=== PATIENT | male | born 1960 | race Caucasian/White ===

== ENCOUNTER 2024-05-28 13:39 | Outpatient (CLI) | payer OTHER, SELFPAY | END 2024-05-28 13:40 | disposition home or self-care (01) | LOC: ANHAUDIO 13:42 | PROVIDERS: Visit Provider Otolaryngology | DX: H81.11 Benign paroxysmal vertigo, right ear (principal); H93.13 Tinnitus, bilateral; E11.9 Type 2 diabetes mellitus without complications; I10 Essential (primary) hypertension; I48.91 Unspecified atrial fibrillation | CPT/HCPCS: 92557; 92567 ==

== ENCOUNTER 2024-09-30 16:55 | Emergency (ER) | payer SELFPAY ==
--- NOTE | 2024-09-30 16:57 | ECG_ITS ---
Test Date: 2024-09-30 17:05:43 Measurements Intervals [place] Rate: 93 P: 257 MI: 129 QRS: -19 QRSD: 105 T: 53 QT: 359 QTc: 447 Interpretive Statements SINUS RHYTHM WITH ATRIAL TRIPLETS AND ATRIAL COUPLET DELAYED PRECORDIAL R/S TRANSITION BASELINE ARTIFACT- I, III, AVR, AVL ABNORMAL ECG No previous ECG available for comparison Electronically Signed On 09-30-2024 20:24:33 CDT by Cortes Gallegos D.O.
--- OUTSIDE RECORDS SUMMARY | 2024-09-30 16:57 | XMS_ITS | CONTINUITY OF CARE DOCUMENT ---
Author Name mimi le Address Unknown Organization [facility] Address [address] [place] [address] Phone [phone] Care Team Providers Care Strategic Planning Specialist Name Role Phone Art Johnson MD Unavailable [phone] ROX PELAEZ MD Unavailable Rox Pelaez MD Unavailable PROBLEMS Condition Status Date Provider Notes Atrial fibrillation, paroxysmal active Annika Summers Tuberculosis active Oscar Summers Dizziness active Oscar Summers Palpitations active Oscar Summers Hypertension active Oscar Summers Hx of tobacco abuse-quit active Oscar Burrell brad Aortic aneurysm active 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 F PRODUCT DIRECTOR Snoring active Art Johnson MD Hypersomnia active Art Johnson MD ENCOUNTERS Date Type Provider Location Encounter Diag nosis 05/18 - 05/31 In-person encounter Office Visit Art Johnson MD [facility] SnoringHypersomnia 01/18 - 01/20 In-person encounter Office Visit Kirk Green MD [facility] Aortic aneurysm 11/23 - 11/23 In-person encounter Office Visit Kirk Green MD [facility] 09/28 - 09/29 In-person encounter Office Visit Kirk Green MD [facility] Atrial fibrillation, paroxysmalTuberculosisDizzinessPalpitationsHypertens ionHx of tobacco abuse-quit VITAL SIGNS Date Observation Value Provider Body Mass Index (Ratio) 27.86 kg/m2 Stephen Johnson MD blood pressure, diastolic 87 mm[Hg] Von newton [facility] blood pressure, systolic 159 mm[Hg] Irene colon [facility] oxygen saturation, oximetry 99 % Regi [facility] pulse rate 63 /min Regi [facility] weight E&M 235 [lb_av] Regi [facility] height E&M 77 [in_i] [facility] Body Mass Index (Ratio) 26.44 kg/m2 Fabrizio Hernandez blood pressure, diastolic 76 mm[Hg] [facility] blood pressure, systolic 129 mm[Hg] [facility] oxygen saturation, oximetry 99 % [facility] pulse rate 65 /min [facility] weight E&M 223 [lb_av] [facility] height E&M 77 [in_i] [facility] Body Mass Index (Ratio) 26.80 kg/m2 Kirk Green MD blood pressure, cuff size regular Ke rri Mannie blood pressure, diastolic 80 mm[Hg] Ke rri Mannie blood pressure, systolic 140 mm[Hg] Asad Chand oxygen saturation, oximetry 99 % Karo Chand respiratory rate E&M 12 /min Karo hernandez pulse rate 74 /min Karo [facility] weight E&M 226 [lb_av] Karo [facility] height E&M 77 [in_i] Karo [place] [facility] weight E&M 229 [lb_av] Amy ruiz Body Mass Index (Ratio) 27.15 kg/m2 Annika Summers blood pressure, cuff size regular Kelley Larsen blood pressure, diastolic 70 mm[Hg] Kelley guevara Larsen blood pressure, systolic 129 mm[Hg] Toby Larsen oxygen saturation, oximetry 100 % [facility] respiratory rate E&M 14 /min Yovana Saurav iller pulse rate 66 /min [facility] weight E&M 229 [lb_av] [facility] height E&M 77 [in_i] [facility] ALLERGIES No Known Drug Allergies HISTORY OF MEDICATION USE Medication Status Instructions Dates Provider Indications Com ments losartan 50 mg tablet active TAKE 1 TABLET BY MOUTH EVERY DAY Mary Tabares losartan 50 mg tablet completed 1 tablet once a day - Mary Tabares folic acid 1 mg tablet active [facility] Xarelto 20 mg tablet active TAKE 1 TABLET BY MOUTH EVERY DAY WITH FOOD FOR 30 DAYS [facility] metoprolol succinate 100 mg tablet extended release 24 hr active TAKE 1 TABLET BY MOUTH EVERY DAY AT NIGHT [facility] losartan 25 mg tablet completed - Kirk Green MD metformin 850 mg tablet active TAKE 1 TABLET BY MOUTH 2 TIMES DAILY WITH MORNING AND EVENING MEAL Yovana Larsen SOCIAL HISTORY Date Observation Value Provider personal history of marijuana use no 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 [facility] drug use no Sarah Ventimig sindhu [facility] alcohol use yes Sarah Ventimig sindhu [facility] cigarette use yes Sarah Ventimi glia [facility] smoking status Former smoker Sarahion Horton miglia [facility] cigarette use yes Kirk Green MD smoking status Former smoker Kirk Green MD cigarette use yes Yovana Larsen smoking status Former smoker Yovana Larsen INSURANCE PROVIDERS Payer name Policy type / Coverage type [place] [employer] ID [employer] (2) Medicaid [id number] ADVANCE DIRECTIVES Name Date DISCUSSED - NO DECISION MADE TREATMENT PLAN Date Name Performer Cardiology Art Johnson MD Cardiology: c ontrolled 129/76 H is updated medication list for this problem includes: Metoprolol Succinate 100 Mg Tablet Extended Release 24 Hr (Metoprolol succinate) ..... Take 1 tablet by mouth every day at night Art Johnson MD Cardiology:Repeat CT in June Art Johnson MD Cardiology:Needs rep eat sleep study, last one was inconclusive Art Johnson MD Cardiology: r ate remains regular c ontinues on BB O n xarelto for AC H is updated medication list for this problem includes: Metoprolol Succinate 100 Mg Tablet Extended Release 24 Hr (Metoprolol succinate) ..... Take 1 tablet by mouth every day at night Art Johnson MD Cardiology:controlle d 129/76 H is updated medication list for this problem includes: Metoprolol Succinate 100 Mg Tablet Extended Release 24 Hr (Metoprolol succinate) ..... Take 1 tablet by mouth every day at night [facility] Cardiology:etiology remains unclear n o orthostatic changes on exam H e had tele with no signifcant arrhythmia W ill f/u with ENT for possible vertigo [facility] Cardiology:rate mayte ins regular c ontinues on BB O n xarelto for AC H is updated medication list for this problem includes: Metoprolol Succinate 100 Mg Tablet Extended Release 24 Hr (Metoprolol succinate) ..... Take 1 tablet by mouth every day at night [facility] Cardiology:Patient n oted to have 4.5 cm unchanged ascending aortic aneurysm on CT chest in 06/2023 and 12/2023 H is BP is well controlled L DL <70 W ill continue to follow with CT chest will repeat in June H is updated medication list for this problem includes: Metoprolol Succinate 100 Mg Tablet Extended Release 24 Hr (Metoprolol succinate) ..... Take 1 tablet by mouth every day at night Sarah Patton [facility] Cardiology:Possibly related to vertigo. Will start taking vertigo pills he was prescribed in the hospital. Kirk Green MD Cardiology:His [facility] ed medication list for this problem includes: Metoprolol Succinate 100 Mg Tablet Extended Release 24 Hr (Metoprolol succinate) ..... Take 1 tablet by mouth every day at night Kirk Green MD Cardiology: B P today: 140/80 P rior BP: 129/70 (09/29/2023) The following medications were removed from the medication list: Losartan 25 Mg Tablet (Losartan) His updated medication list for this problem includes: Metoprolol Succinate 100 Mg Tablet Extended Release 24 Hr (Metoprolol succinate) ..... Take 1 tablet by mouth every day at night Kirk Green MD Cardiology:Was recen tly hospitalized for coughing up blood. Will refer to Pulmonology Kirk Green MD Cardiology: H is updated medication list for this problem includes: Metoprolol Succinate 100 Mg Tablet Extended Release 24 Hr (Metoprolol succinate) ..... Take 1 tablet by mouth every day at night Oscar Summers Cardiology: B P today: 129/70 His updated medication list for this problem includes: Metoprolol Succinate 100 Mg Tablet Extended Release 24 Hr (Metoprolol succinate) ..... Take 1 tablet by mouth every day at night Losartan 25 Mg Tablet (Losartan) Oscar Summers Cardiology:Pt had a few episodes of Afib, usually self-terminated. Seen in ER a few times. States it all began after he was diagnosed with TB. Oscar Summers Cardiology:Complains of fatigue and dizziness. Will obtain echo, stress test, 1 week telecentry, PFTS, home sleep test, and lab work S TOP Losartan Oscar Summers Cardiology:Pt had a few episodes of Afib, usually self-terminated. Seen in ER a few times. States it all began after he was diagnosed with TB. He is currently on Xarelto, BB, and losartan. Complains of fatigue and dizziness. Will obtain echo, stress test, 1 week telecentry, PFTS, home sleep test, and lab work Oscar Summers Date Name Monitor - Telemetry (Mobile Cardiac) Sleep Study Home CT Chest without con trast CRP, high sensitivit y Lipoprotein (a) LIPID PANEL PROBNP, N TERMINAL Microalb/Creatinine Urine, Random HEMOGLOBIN A1c BASIC METABOLIC PANE L W/EGFR Sleep Study Home DLCO - 00986 FRC - 92527 FVC - 83060 Monitor - Telemetry (Mobile Cardiac) Stress Routine Complete Echo HISTORY OF PROCEDURES Procedure Date Procedure Name Provider Procedure Notes S tatus FVC / MVV with [facility] hodilator - 88070 Kirk Green MD completed FRC - 37597 Kirk Green MD completed SpO2 w/o 6min walk/titration Kirk Green MD completed DLCO - 33803 Kirk Green MD complete d
--- OUTSIDE RECORDS SUMMARY | 2024-09-30 16:57 | XMS_ITS ---
Author Organization [facility] Address [address] [place] [address] Care Team Providers Care Vice President Network Name Role Phone [facility] Primary Care Provider REASON FOR VISIT Cold chills and coughing up blood Social History Sex Assigned At : Social History Observation Description Sex Assigned At Male Encounters Encounter Location Date Provider Diagnosis [address] [address] 11/24/2023 [facility] Hemoptysis, unspecified R04.2 Assessments Encounter Date Diagnosis (ICD Code) Assessment Notes Treatment Notes Treatment Clinical Notes Section Notes 11/24/2023 Hemoptysis, unspecified (ICD-10 - R04.2) Plan Of Treatment No Information Progress Notes * GUTIERRES, AngeloDOB:1960 (63 yo M)Acc No.[id number]:11/24/2023 Patient: Angelo PARK :1960 A ge:63 Y S ex:Male Address:[address] [place] [address], [phone] Subjective: * Chief Complaints: * C old chills and coughing up blood * Medical History: * Surgical History: * Hospitalization/Major Diagno stic Procedure: * Medications: Objective: * Vitals: * Physical Examination: Assessment: * Assessment: 1. H emoptysis, unspecified - R04.2 (Primary) Plan: * Treatment: * Procedure Codes: * true * Date: Generated for Printi ng/Faxing/eTransmitting on: 0 09/30/2024 04:57 PM CDT
--- OUTSIDE RECORDS SUMMARY | 2024-09-30 16:57 | XMS_ITS ---
Author Organization [facility] Address [address] [place] [address] Care Team Providers Care Junior Software Engineer Name Role Phone [facility] Primary Care Provider REASON FOR VISIT Metformin clarification Medications Medication SIG (Take, Route, Fr equency, Duration) Notes Start Date End Date Status metFORMIN HCl 850 MG 1 tablet with a leann l Orally Twice a day Active Social History Sex Assigned At : Social History Observation Description Sex Assigned At Male Encounters Encounter Location Date Provider Diagnosis [address] [address] 10/16/2023 [facility] Type 2 diabetes mellitus with diabetic polyneuropathy E11.42 Assessments Encounter Date Diagnosis (ICD Code) Assessment Notes Treatment Notes Treatment Clinical Notes Section Notes 10/16/2023 Type 2 diabetes mellitus with diabetic polyneuropathy (ICD-10 - E11.42) Plan Of Treatment Medication Medication Name Sig Start Date Stop Date Notes metFORMIN HCl 850 MG 1 tablet with a leann l Orally Twice a day Progress Notes * Angelo GUTIERRESDOB:1960 (63 yo M)Acc No.[id number]:10/16/2023 Patient: Nikolai LAYNE Angelo :1960 A ge:63 Y S ex:Male Address:[address] [place] [address], [phone] * Refills Refill metFORMIN HCl Tablet, 850 MG, Orally, 60, 1 tablet with a meal, Twice a day, Refills=5 * true * Date: Generated for Printi ng/Faxing/eTransmitting on: 0 09/30/2024 04:57 PM CDT
--- OUTSIDE RECORDS SUMMARY | 2024-09-30 16:57 | XMS_ITS | Clinical Summary ---
Author Organization [facility] Address [address] [place] [address] Care Team Providers Care Store Consultant Name Role Phone Unavailable Primary Care Provider Unavailabl e Source Comments [facility],non-owned Affiliates and Associated Physician Practices is amultiple site organization consisting of ambulatory clinics and hospital sitesin [place], [place], [place] and [place]. This disclosure is being madepursuant to the Care Everywhere program and may not contain all informatio navailable regarding this patient. Last updated [email or web address] Allergies No known active allergies Medications * Be aware that medications may not be up to date on this document. Alwaysverify current medications with the patient. 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 Check also as needed 100 Each 07/02/2023 Active blood glucose test stripIndications:Type 2 diabetes mellitus with other specified complication, unspecified whether dedicated intermodal truck driver insulin use (HCC) Use 1 (one) strip as directed To check blood sugars 2 times daily fasting in am and after meal. Check also as needed 100 strip 07/02/2023 Active Xarelto 20 MG tablet Take 1 (one) tablet by mouth once daily for 30 days 30 tablet 08/20/2023 Active metoprolol tartrate IR (Lopressor) 25 MG tablet Take 1 (one) tablet by mouth 2 times daily for 30 days 60 tablet 08/20/2023 Active metFORMIN (Glucophage) 850 MG tablet Take 1 (one) tablet by mouth 2 times daily with morning and evening meal for 30 days 60 tablet 08/20/2023 Active pantoprazole EC (Protonix) 40 MG tablet Take 1 (one) tablet by mouth once daily for 30 days 30 tablet 08/20/2023 Active losartan (Cozaar) 25 MG tablet Take 1 (one) tablet by mouth once daily for 30 days 30 tablet 08/20/2023 Active Active Problems Problem Noted Date Diagnosed Date Tachycardia 07/02/2023 Cavitary lesion of lung 06/30/2023 Hemoptysis 06/30/2023 Immunizations Name Administration Dates Next Due COVID - 19, HISTORIC VACCINE 05/08/2024 INFLUENZA VACCINE, CELL CULT URE, TRIV. (FLUCELVAX TRIVALENT; 6MO+), 0.5 ML (CCIIV3) 05/08/2024 Social History Tobacco Use Types Packs/Day Years Used Date Smoking Tobacco: Never Assessed AUDIT-C Answer Date Recorded Q1: How often do you have a drink containing alc ohol? 2-3 times a week 06/30/2023 Q2: How many drinks containi ng alcohol do you have on a typical day when you are drinking? 5 or 6 06/30/2023 Q3: How often do you have si x or more drinks on one occasion? Weekly 06/30/2023 Overall Financial Resource Strain (CARDIA) Answe r Date Recorded How hard is it for you to pa y for the very basics like food, housing, medical care, and heating? Not hard at all 06/30/2023 [facility] of Occupat ional Health - Occupational Stress Questionnaire Answer Date Recorded Do you feel stress - tense, restless, nervous, or anxious, or unable to sleep at night because your mind is troubled all the time - these days? Not at all 06/30/2023 Hunger Vital Sign Answer Date Recorded Within the past 12 months, y ou worried that your food would run out before you got the money to buy more. Never true 06/30/19 24 Within the past 12 months, t he food you bought just didn't last and you didn't have money to get more. Never true 06/30/2023 PRAPARE - Transportation Answer Date Re corded In the past 12 months, has l ack of transportation kept you from medical appointments or from getting medications? No 01/2024 In the past 12 months, has l ack of transportation kept you from meetings, work, or from getting things needed for daily living? No 06/30/2023 Housing Stability Vital Sign Answer Julian e Recorded In the last 12 months, was t here a time when you were not able to pay the mortgage or rent on time? No 06/30/2023 In the last 12 months, how many places have you lived? 1 06/30/2023 In the last 12 months, was t here a time when you did not have a steady place to sleep or slept in a jail (including now)? No 06/30/2023 Sex and Gender Information Value Date Recorded Sex Assigned at Not on file Gender Identity Not on file Sexual Orientation Not on file Last Filed Vital Signs Vital Sign Reading Time Taken Comments Blood Pressure 127/71 07/09/2023 4:12 AM BIOLOGY SPECIALIST Pulse 79 07/09/2023 6:11 AM BIOLOGY SPECIALIST Temperature 36.6 C (97.8 F) 07/09/2023 6:11 AM BIOLOGY SPECIALIST Respiratory Rate 19 07/09/2023 6:11 AM BIOLOGY SPECIALIST Oxygen Saturation 96% 07/08/2023 2:21 PM BIOLOGY SPECIALIST Inhaled Oxygen Concentration - - Weight 113.4 kg (250 lb) 07/03/2023 11:02 AM BIOLOGY SPECIALIST Height 193 cm (6' 4 ) 07/03/2023 11:02 AM BIOLOGY SPECIALIST Body Mass Index 30.43 07/03/2023 11:02 AM BIOLOGY SPECIALIST Plan of Treatment Health Maintenance Due Date Last Done Comments COLOGUARD (AGES 45-75) - COL ON CA SCREENING 1960 COLON MONITORING 1960 COLONOSCOPY - COLON CA SCREENING 1959 CT COLONOGRAPHY - COLON CA SCREENING 1960 Colorectal Cancer Screening 1960 FIT - COLON CA SCREENING 1960 FLEX SIG - COLON CA SCREENING 1960 LIPID TESTING 1960 HEPATITIS C SCREENING 08/12/1977 DTAP/TDAP/TD VACCINES (1 - Tdap) 1978 PNEUMOCOCCAL VACCINE 50+ (1 of 1 - PCV) 2009 ZOSTER VACCINE (1 of 2) 2009 COVID-19 VACCINE ( - 2023-2 5 season) 2024 DEPRESSION SCREENING 06/23/2024 Respiratory Syncytial Virus (RSV) Vaccine Pt: or over 60 yrs (1 - 1-dose 75+ series) 2034 HIV SCREENING Completed 07/03/2023 INFLUENZA VACCINE Completed 05/08/2024 HEPATITIS B VACCINE Aged Out No longe r eligible based on patient's age to complete this topic HIB VACCINE Aged Out No longer eligi ble based on patient's age to complete this topic HPV VACCINE Aged Out No longer eligi ble based on patient's age to complete this topic MENINGOCOCCAL (Group B) VACC INE SHARED DECISION-MAKING Aged Out No longer eligibl e based on patient's age to complete this topic MENINGOCOCCAL GROUPS A/C/Y/W VACCINE Aged Out No longer eligible b ased on patient's age to complete this topic Procedures Procedure Name Priority Date/Time Associated Diagnosis Comments HIV-1 HIV-2 ANTIBODY + HIV P24 AG PANEL AM Draw 07/03/2023 4:16 AM BIOLOGY SPECIALIST from Last 3 Months or Most Recently Relevant to Health Maintenance Results * HIV-1 HIV-2 ANTIBODY + HIV P24 AG PANEL (07/03/2023 4:16 AM BIOLOGY SPECIALIST) HIV1/2 Ab + P24 Ag Non Reactive Non Reactive 07/03/2023 5:12 AM BIOLOGY SPECIALIST [facility] Blood BLOOD SPECIMEN / Unknown Venipuncture / Unknown 07/03/2023 4:16 AM BIOLOGY SPECIALIST 07/03/2023 4:29 AM BIOLOGY SPECIALIST Narrative [facility] - 07/03/2023 5:12 AM BIOLOGY SPECIALIST No Laboratory evidence of HIV infection. Jevon Contreras MD LAB - CHEMISTRY EDITA NAIDU Performing Organization Address City/State/[facility] Co de Phone Number [facility] [address] [place] [address] from Last 3 Months or Most Recently Relevant to Health Maintenance Additional Health Concerns Infection Onset Date Last Indicated AFB Smr Pos 07/01/2023 07/03/2023 TB 07/01/2023 07/03/2023 Advance Directives * Full Code (Latest Code Status on File) Date Activated Date Inactivated Comments 06/30/2023 10:46 AM 07/09/2023 6:25 PM
--- OUTSIDE RECORDS SUMMARY | 2024-09-30 16:57 | XMS_ITS | Patient Health Record ---
Author Organization [facility] Address [address] [place] [address] Care Team Providers Care Milk Collector Name Role Phone [facility] Primary Care Provider Allergies No Known Allergies Results Component Value Reference Range Notes CT Scan : Chest without cont rast Reviewed date:01/01/2024 03:53:02 PM Interpretation: Performing Lab: Notes/Report: Reason For Referral No Information Medications Medication SIG (Take, Route, Frequency, Duration) Notes Start Date End Date Status Folic Acid 1 MG 1 tablet Orally Once a day Active Xarelto 20 MG 1 tablet with food Orally Once a day for 30 days Active Metoprolol Succinate ER 100 MG TAKE 1 TABLET BY MOUTH ONCE DAILY AT NIGHT for 30 Was supposed to be seen 09/2023. Please make appt. Active Losartan Potassium 25 MG 1 tablet Orally Once a day Active metFORMIN HCl 850 MG 1 tablet with a leann l Orally Twice a day Active Social History Tobacco Use: Social History Observation Description Date Details (start date - stop date) Never Smoker NA - NA Sex Assigned At : Social History Observation Description Sex Assigned At Male Tobacco Control (Standard) Question Answer Notes Tobacco use: Nonsmoker Problems Problem Type SNOMED Code ICD Code Onset Dates Problem Status W/U Status Risk Notes Problem Polyneuropathy due to type 2 diabetes mellitus (782306298) Type 2 diabetes mellitus with diabetic polyneuropathy (E11.42) 06/23/19 24 Active confirmed Problem Hypertension (52449552) Hypertension (I10) 06/23/19 24 Active confirmed Problem Obstructive sleep apnea (68700811) Obstructive sleep apnea (G47.33) Active confirmed Problem Atrial fibrillation (09665151) Atrial fibrillation (I48.91) 06/23/19 24 Active confirmed Problem Peripheral venous insufficiency (87628377) Venous stasis dermatitis of both lower extremities (I87.2) 08/26/19 24 Active confirmed Problem Tuberculosis (88016821) Tuberculosis (A15.9) 06/23/19 24 Active confirmed Encounters Encounter Location Date Provider Diagnosis [address] [address] 10/16/2023 [facility] Type 2 diabetes mellitus with diabetic polyneuropathy E11.[address] [address] 11/24/2023 [facility] Hemoptysis, unspecif ied R04.2 Assessments Encounter Date Diagnosis (ICD Code) Assessment Notes Treatment Notes Treatment Clinical Notes Section Notes 10/16/2023 Type 2 diabetes mellitus with diabetic polyneuropathy (ICD-10 - E11.42) 11/24/2023 Hemoptysis, unspecified (ICD-10 - R04.2) Plan Of Treatment No Information Insurance Providers Payer Name Payer Address Payer Phone Subscriber Number Group Number Insured Name Patient Relationship to Insured Coverage Start Date Coverage End Date MEDICAID [address] [place] [phone] [id number] Angelo Gutierres Self - patient is the insured 4 Medical (General) History Medical History History ICD Code hypertension Atrial fibrillation
--- OUTSIDE RECORDS SUMMARY | 2024-09-30 16:58 | XMS_ITS ---
Author Organization [facility] Address [address] [place] [address] Care Team Providers Care Aircraft Landing Gear Inspector Name Role Phone [facility] Primary Care Provider REASON FOR VISIT Quality Measure Colonoscopy Social History Sex Assigned At : Social History Observation Description Sex Assigned At Male Encounters Encounter Location Date Provider Diagnosis [address] [place] [address] 09/25/2023 [facility] Plan Of Treatment No Information Progress Notes * Angelo GUTIERRESDOB:1960 (63 yo M)Acc No.[id number]:09/25/2023 Patient: Angelo PARK :1960 A ge:63 Y S ex:Male Address:[address] [place] [address], [phone] * true * Date: Generated for Luisi sara/Fuentesg/eTransmitting on: 0 09/30/2024 04:57 PM CDT
[2024-09-30 16:59] VITALS: BP 169/97; PULSE 93; RESP 18; TEMP 36.4; O2SAT 100
--- OUTSIDE RECORDS SUMMARY | 2024-10-01 01:54 | XMS_ITS ---
Author Organization [facility] Address [address] [place] [address] Care Team Providers Care Banking Services Advisor Name Role Phone [facility] Primary Care Provider [phone] REASON FOR VISIT Metformin clarification Medications Medication SIG (Take, Route, Fr equency, Duration) Notes Start Date End Date Status metFORMIN HCl 850 MG 1 tablet with a leann l Orally Twice a day Active Social History Sex Assigned At : Social History Observation Description Sex Assigned At Male Encounters Encounter Location Date Provider Diagnosis [address] [address] 10/16/2023 [facility] Type 2 diabetes mellitus [...] Notes * Angelo GUTIERRESDOB:1960 (63 yo M)Acc No.[id number]:10/16/2023 Patient: Nikolai LAYNE Angelo :1960 A ge:63 Y S ex:Male Address:[address] [place] [address], [phone] * Refills Refill metFORMIN HCl Tablet, 850 MG, Orally, 60, 1 tablet with a meal, Twice a day, Refills=5 * true * Date: Generated for Printi ng/Faxing/eTransmitting on: 0 10/01/2024 01:53 AM CDT
--- OUTSIDE RECORDS SUMMARY | 2024-10-01 01:54 | XMS_ITS | CONTINUITY OF CARE DOCUMENT ---
Author Name mimi le Address Unknown Organization [facility] Address [address] [place] [address] Phone [phone] Care Team Providers Care Publicity Expert Name Role Phone Art Johnson MD Unavailable [phone] ROX PELAEZ MD Unavailable [phone] Rox Pelaez MD Unavailable PROBLEMS Condition Status Date Provider Notes Atrial fibrillation, paroxysmal active Annika Summers Tuberculosis active Oscar Summers Dizziness active Oscar Summers Palpitations active Oscar Summers Hypertension active Oscar Summers Hx of tobacco abuse-quit active Oscar Burrell brad Aortic aneurysm active 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 Snoring active Art Johnson MD Hypersomnia active Art Johnson MD ENCOUNTERS Date Type Provider Location Encounter Diag nosis 05/18 - 05/31 In-person encounter Office Visit Art Johnson MD [place] [facility] SnoringHypersomnia 01/18 - 01/20 In-person encounter Office Visit Kirk Green MD [place] [facility] Aortic aneurysm 11/23 - 11/23 In-person encounter Office Visit Kirk Green MD [place] [facility] 09/28 - 09/29 In-person encounter Office Visit Krik Green MD [place] [facility] Atrial fibrillation, paroxysmalTuberculosisDizzinessPalpitationsHypertens ionHx of tobacco abuse-quit VITAL SIGNS Date Observation Value Provider Body Mass Index (Ratio) 27.86 kg/m2 Stephen Johnson MD blood pressure, diastolic 87 mm[Hg] Von newton [facility] blood pressure, systolic 159 mm[Hg] Irene colon [facility] oxygen saturation, oximetry 99 % Regi [facility] pulse rate 63 /min Regi [facility] weight E&M 235 [lb_av] Regi [facility] height E&M 77 [in_i] [facility] Body Mass Index (Ratio) 26.44 kg/m2 Fabrizio Hernandez blood pressure, diastolic 76 mm[Hg] Karla godinez [facility] blood pressure, systolic 129 mm[Hg] [facility] oxygen saturation, oximetry 99 % [facility] pulse rate 65 /min [facility] weight E&M 223 [lb_av] [facility] height E&M 77 [in_i] [facility] Body Mass Index (Ratio) 26.80 kg/m2 Kirk Green MD blood pressure, cuff size regular Ke rri Mannie blood pressure, diastolic 80 mm[Hg] Ke rri Mannie blood pressure, systolic 140 mm[Hg] Asad Chand oxygen saturation, oximetry 99 % Karo Chand respiratory rate E&M 12 /min Karo hernandez pulse rate 74 /min Karo Carroll [facility] weight E&M 226 [lb_av] Karo Glen er height E&M 77 [in_i] Karo Glen [facility] weight E&M 229 [lb_av] Amy ruiz Body Mass Index (Ratio) 27.15 kg/m2 Annika Summers blood pressure, cuff size regular Kelley Larsen blood pressure, diastolic 70 mm[Hg] Kelley guevara Larsen blood pressure, systolic 129 mm[Hg] Toby Larsen oxygen saturation, oximetry 100 % [facility] respiratory rate E&M 14 /min Yovana Saurav iller pulse rate 66 /min [facility] weight E&M 229 [lb_av] [facility] height E&M 77 [in_i] [facility] ALLERGIES No Known Drug Allergies HISTORY OF MEDICATION USE Medication Status Instructions Dates Provider Indications Com ments losartan 50 mg tablet active TAKE 1 TABLET BY MOUTH EVERY DAY Mary Tabares losartan 50 mg tablet completed 1 tablet once a day - Mary Tabares folic acid 1 mg tablet active [facility] Xarelto 20 mg tablet active TAKE 1 TABLET BY MOUTH EVERY DAY WITH FOOD FOR 30 DAYS [facility] metoprolol succinate 100 mg tablet extended release 24 hr active TAKE 1 TABLET BY MOUTH EVERY DAY AT NIGHT [facility] losartan 25 mg tablet completed - Kirk Green MD metformin 850 mg tablet active TAKE 1 TABLET BY MOUTH 2 TIMES DAILY WITH MORNING AND EVENING MEAL Yovana Larsen SOCIAL HISTORY Date Observation Value Provider personal history of marijuana use no 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 [facility] drug use no Sarah Ventimig sindhu [facility] alcohol use yes Sarah Ventimig sindhu [facility] cigarette use yes Sarah Ventimi glia [facility] smoking status Former smoker Sarahion Horton miglia [facility] cigarette use yes Kirk Green MD smoking status Former smoker Kirk Green MD cigarette use yes Yovana Larsen smoking status Former smoker Yovana Larsen INSURANCE PROVIDERS Payer name Policy type / Coverage type [place] party ID [employer] (2) Medicaid [id number] ADVANCE DIRECTIVES Name Date DISCUSSED - NO [...] tablet by mouth every day at night [facility] Cardiology:etiology remains unclear n o orthostatic changes on exam H e had tele with no signifcant arrhythmia W ill f/u with ENT for possible vertigo [facility] Cardiology:rate mayte ins regular c ontinues on BB O n xarelto for AC H is updated medication list for this problem includes: Metoprolol Succinate 100 Mg Tablet Extended Release 24 Hr (Metoprolol succinate) ..... Take 1 tablet by mouth every day at night [facility] Cardiology:Patient n oted to have 4.5 [...] mouth every day at night Sarah Patton [facility] Cardiology:Possibly related to vertigo. Will start taking vertigo pills he was prescribed in the hospital. Kirk Green MD Cardiology:His [facility] medication list for this problem includes: [...] and lab work S TOP Losartan Oscar Summesr Cardiology:Pt had a few episodes of Afib, [...] L W/EGFR Sleep Study Home DLCO - 61714 FRC - 96851 FVC - 17614 Monitor - Telemetry (Mobile Cardiac) Stress Routine Complete Echo HISTORY OF PROCEDURES Procedure Date Procedure Name Provider Procedure Notes S tatus FVC / MVV with [facility] hodilator - 26561 Kirk Green MD completed FRC - 15847 Kirk Green MD completed SpO2 w/o 6min walk/titration Kirk Green MD completed DLCO - 98752 Kirk Green MD complete d
--- OUTSIDE RECORDS SUMMARY | 2024-10-01 01:54 | XMS_ITS | Patient Health Record ---
Author Organization [facility] Address [address] [place] [address] Care Team Providers Care Waxer Floor Name Role Phone [facility] Primary Care Provider [phone] Allergies No Known Allergies Results Component Value [...] Polyneuropathy due to type 2 diabetes mellitus (600056328) Type 2 diabetes mellitus with diabetic polyneuropathy (E11.42) 06/23/19 24 Active confirmed Problem Hypertension (27432383) Hypertension (I10) 06/23/19 24 Active confirmed Problem Obstructive sleep apnea (98131926) Obstructive sleep apnea (G47.33) Active confirmed Problem Atrial fibrillation (82448201) Atrial fibrillation (I48.91) 06/23/19 24 Active confirmed Problem Peripheral venous insufficiency (35502291) Venous stasis dermatitis of both lower extremities (I87.2) 08/26/19 24 Active confirmed Problem Tuberculosis (03401119) Tuberculosis (A15.9) 06/23/19 24 Active confirmed Encounters Encounter Location Date Provider Diagnosis [address] [address] 10/16/2023 [facility] Type 2 diabetes mellitus with diabetic polyneuropathy E11.[address] [address] 11/24/2023 [facility] Hemoptysis, unspecif ied R04.2 [...] Date MEDICAID [address] [place] [address] [id number] Angelo Gutierres Self - patient is the insured 4 Medical (General) History Medical History History ICD Code hypertension Atrial fibrillation
--- OUTSIDE RECORDS SUMMARY | 2024-10-01 01:54 | XMS_ITS | Clinical Summary ---
Author Organization [facility] Address [address] [place] [address] Care Team Providers Care Electromechanical Equipment Assembler Name Role Phone Unavailable Primary Care Provider Unavailabl e Source Comments [facility],non-owned Affiliates and Associated Physician Practices is amultiple site organization consisting of ambulatory clinics and hospital sitesin [place], [place], [place] and [place]. This disclosure is being madepursuant to the Care Everywhere program and may not contain all informatio navailable regarding this patient. Last updated 18.[employer]metric Allergies No known active allergies Medications * Be aware that medications may not be up to date on this document. Alwaysverify current medications with the patient. 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 Not hard at all 06/30/2023 [facility] [place] of Occupat ional Health - Occupational Stress [...] place to sleep or slept in a nursing home (including now)? No 06/30/2023 Sex and Gender Information Value Date Recorded Sex Assigned at Not on file Gender Identity Not on file Sexual Orientation Not on file Last Filed Vital Signs Vital Sign Reading Time Taken Comments Blood Pressure 127/71 07/09/2023 4:12 AM INDUSTRIAL AUTOMATION SPECIALIST Pulse 79 07/09/2023 6:11 AM INDUSTRIAL AUTOMATION SPECIALIST Temperature 36.6 C (97.8 F) 07/09/2023 6:11 AM INDUSTRIAL AUTOMATION SPECIALIST Respiratory Rate 19 07/09/2023 6:11 AM INDUSTRIAL AUTOMATION SPECIALIST Oxygen Saturation 96% 07/08/2023 2:21 PM INDUSTRIAL AUTOMATION SPECIALIST Inhaled Oxygen Concentration - - Weight 113.4 kg (250 lb) 07/03/2023 11:02 AM INDUSTRIAL AUTOMATION SPECIALIST Height 193 cm (6' 4 ) 07/03/2023 11:02 AM INDUSTRIAL AUTOMATION SPECIALIST Body Mass Index 30.43 07/03/2023 11:02 AM INDUSTRIAL AUTOMATION SPECIALIST Plan of Treatment Health Maintenance Due [...] AG PANEL AM Draw 07/03/2023 4:16 AM INDUSTRIAL AUTOMATION SPECIALIST from Last 3 Months or Most Recently Relevant to Health Maintenance Results * HIV-1 HIV-2 ANTIBODY + HIV P24 AG PANEL (07/03/2023 4:16 AM INDUSTRIAL AUTOMATION SPECIALIST) HIV1/2 Ab + P24 Ag Non Reactive Non Reactive 07/03/2023 5:12 AM INDUSTRIAL AUTOMATION SPECIALIST [facility] Blood BLOOD SPECIMEN / Unknown Venipuncture / Unknown 07/03/2023 4:16 AM INDUSTRIAL AUTOMATION SPECIALIST 07/03/2023 4:29 AM INDUSTRIAL AUTOMATION SPECIALIST Narrative [facility] - 07/03/2023 5:12 AM INDUSTRIAL AUTOMATION SPECIALIST No Laboratory evidence of HIV infection. Jevon Contreras MD LAB - CHEMISTRY EDITA NAIDU Performing Organization Address City/State/[facility] Co de Phone Number [facility] [address] [place] [address] from Last 3 Months or Most Recently Relevant to Health Maintenance Additional Health Concerns Infection Onset Date Last Indicated AFB Smr Pos 07/01/2023 07/03/2023 TB 07/01/2023 07/03/2023 Advance Directives * Full Code (Latest Code Status on File) Date Activated Date Inactivated Comments 06/30/2023 10:46 AM 07/09/2023 6:25 PM
--- OUTSIDE RECORDS SUMMARY | 2024-10-01 01:54 | XMS_ITS ---
Author Organization [facility] Address [address] [place] [address] Care Team Providers Care Onion Farmer Name Role Phone [facility] Primary Care Provider [phone] REASON FOR VISIT Quality Measure Colonoscopy Social History Sex Assigned At : Social History Observation Description Sex Assigned At Male Encounters Encounter Location Date Provider Diagnosis [address] [place] [address] 09/25/2023 [facility] Plan Of Treatment No Information Progress Notes * Angelo GUTIERRESDOB:1960 (63 yo M)Acc No.[id number]:09/25/2023 Patient: Angelo PARK :1960 A ge:63 Y S ex:Male Address:[address] [place] [address], [phone] * true * Date: Generated for Luisi sara/Dov/eTransmitting on: 0 10/01/2024 01:54 AM CDT
--- OUTSIDE RECORDS SUMMARY | 2024-10-01 01:54 | XMS_ITS ---
Author Organization [facility] Address [address] [place] [address] Care Team Providers Care Land Surveyor Manager Name Role Phone [facility] Primary Care Provider REASON FOR VISIT Cold chills and coughing up blood Social History Sex Assigned At : Social History Observation Description Sex Assigned At Male Encounters Encounter Location Date Provider Diagnosis [address] [address] 11/24/2023 [facility] Hemoptysis, unspecified R04.2 Assessments Encounter Date Diagnosis (ICD Code) Assessment Notes Treatment Notes Treatment Clinical Notes Section Notes 11/24/2023 Hemoptysis, unspecified (ICD-10 - R04.2) Plan Of Treatment No Information Progress Notes * GUTIERRES, AngeloDOB:1960 (63 yo M)Acc No.[id number]:11/24/2023 Patient: Angelo PARK :1960 A ge:63 Y S ex:Male Address:[address] [place] [address], [address] Subjective: * Chief Complaints: * C old [...]
== END 2024-09-30 17:10 | disposition left against medical advice (07) ==
PROVIDERS: Emergency Provider Emergency Medicine
DX: R00.2 Palpitations (principal)
CPT/HCPCS: 93005; 99199